=== PATIENT | male | born 1980 | race Caucasian/White ===

== ENCOUNTER 2021-02-22 10:07 | Outpatient (CLI) | payer MEDICAID, SELFPAY ==
--- NOTE | 2021-02-22 | DI.RAD_ITS ---
Exam(s) XR LUMBAR SPINE COMPLETE EXAM: XR LUMBAR SPINE COMPLETE CLINICAL HISTORY: RT SCIATICA, BACK PAIN, M54.31 TECHNIQUE: COMPARISON: No exams were available for comparison FINDINGS: Five views were obtained. There is disc space loss of height at L5-S1 consistent with disc degenerat ion. Mild hypertrophic endplate changes are also noted at L5-S1. Otherwise intervertebral disc spaces appear well maintained. There are slight hypertrophic degenerat milan changes of the facet joints at L5-S1. No other bony abnormality seen. IMPRESSION: Loss of height of intervertebral disc space at L5-S1. Mild degenerative changes. RADIATION DOSE DELIVERED: Total DLP
== END 2021-02-22 10:27 ==
PROVIDERS: Visit Provider Physician Assistant Medical
DX: M47.817 Spondylosis without myelopathy or radiculopathy, lumbosacral region; M54.41 Lumbago with sciatica, right side
CPT/HCPCS: 72110